=== PATIENT | female | born 1995 | race Hispanic/Latino ===

== ENCOUNTER 2019-07-26 08:43 | Inpatient (IN) | payer MEDICAID ==
[~2019-07-26] VITALS: Ht 165.1 cm; Wt 73.0 kg
[2019-07-26 09:30] LABS: APPEARANCE,URINE Cloudy (CLEAR); BILIRUBIN,URINE Negative (NEGATIVE); COLOR,URINE Yellow (YELLOW); GLUCOSE, URINE (UA) Negative (NEGATIVE); KETONES,URINE Negative (NEGATIVE); LEUKOCYTE ESTERASE ,URINE Small (NEGATIVE); NITRATE,URINE Negative (NEGATIVE); OCCULT BLOOD,URINE Negative (NEGATIVE); PH,URINE 6.5 (5.0-8.0); PROTEIN,URINE Trace mg/dL (NEGATIVE)
[2019-07-26 09:34] LABS: BACTERIA,URINE Rare /HPF (None Seen); RBC,URINE 0-1 /HPF (0-1); SQUAMOUS EPITHELIAL CELL,UR Rare /HPF (0-2); WBC,URINE 0-1 /HPF (0-1)
[2019-07-26] MEDS ORDERED: MORPHINE SULFATE 10 MG/ML 1ML VIAL IM SCH (10:00)
[2019-07-26 10:07] VITALS: BP 124/82
[2019-07-26] MEDS: LACTATED RINGERS 1000ML 1,000 ML IV PRN (10:13)
[2019-07-26 11:33] LABS: HEMATOCRIT 38.2 % (36-48); MEAN CORPUSCULAR VOLUME 94.1 fL (79-99); PLATELET COUNT (AUTO) 237 K/uL (130-400); RED BLOOD CELL COUNT(AUTO) 4.06 MIL/uL (4.00-5.50); RED CELL DISTRIBUTION WIDTH 11.6 % (11.0-15.5); WHITE BLOOD COUNT (AUTO) 8.3 K/uL (4.8-10.8)
[2019-07-26] MEDS ORDERED: PROMETHAZINE HCL 25 MG/ML 1ML AMPULE IM SCH (12:30)
[2019-07-26] MEDS ORDERED: MEPERIDINE-PF 50 MG/ML SYG IVP SCH (12:30)
[2019-07-26] MEDS ORDERED: ROPIVACAINE 0.2% 100ML VIAL 100 ML EP SCH (15:00)
[2019-07-26] MEDS ORDERED: LACTATED RINGERS 500 ML 500 ML IV PRN (15:00)
[2019-07-26] MEDS ORDERED: NALOXONE HCL 0.4 MG/1 ML ML IV PRN (15:00)
[2019-07-26] MEDS ORDERED: EPHEDRINE SULFATE 50 MG/ML AMPULE IVP PRN (15:00)
[2019-07-26] MEDS ORDERED: OXYTOCIN 10 USP UNITS/ML 20 UNIT in LACTATED RINGERS 1000ML 1,000 ML IV SCH (20:30)
[2019-07-26] MEDS ORDERED: LIDOCAINE HCL 1% 20 ML VIAL ONE (20:30)
[2019-07-26] MEDS: OXYTOCIN-LR 20 UNITS/1000 ML 1,000 ML IV SCH ×2 (20:33→23:00)
[2019-07-26] MEDS ORDERED: LANOLIN 30GM OINTMENT TP PRN (23:00)
[2019-07-26] MEDS ORDERED: DIPH,PERTUSS(ACELL),TET VAC/PF 0.5 ML VIAL IM PRN (23:00)
[2019-07-26] MEDS ORDERED: ACETAMINOPHEN-CODEINE 300/30MG TAB PO PRN (23:00)
[2019-07-27] VITALS (7 sets, daily range): BP systolic 115–129; BP diastolic 55–79
--- NOTE | 2019-07-27 01:15 | NUR ---
REPAIR OF VAGINAL SPECTUM BY DR. VERGARA. ICE PACK APPLIED FOR PRESSURE PER MD'S ORDER. Addendum: 07/27/19 at 0253 by ALEX BETTS RN RN Amended: Links added.
[2019-07-27] MEDS ORDERED: PREN-154 PO (02:18)
[2019-07-27] MEDS: WITCH HAZEL 1 PAD TP PRN (05:14)
[2019-07-27] MEDS: BENZOCAINE/LANOLIN/ALOE VERA 60 ML AEROSOL TP PRN (05:14)
[2019-07-27] MEDS: IBUPROFEN 600 MG TABLET PO PRN ×2 (05:15→21:00)
[2019-07-27] MEDS: OXYTOCIN-LR 20 UNITS/1000 ML 1,000 ML IV SCH ×2 (07:24)
--- NOTE | 2019-07-27 07:45 | NUR ---
PATIENT ASSESSED AND CHANGED ICE PACK TO PERINEUM AND TUCKS APPLIED WITH ICE PACK. PATIENT STATES HAVING RELIEF OF DISCOMFORT. INSTRUCTED PATIENT ON USE OF ICE PACK AND TUCKS TO REDUCE INFLAMATION TO PERINEUM AND FOR COMFORT.
[2019-07-27] MEDS: DOCUSATE SODIUM 100 MG CAP PO SCH ×2 (09:07→20:57)
--- NOTE | 2019-07-27 12:40 | NUR ---
DR. VERGARA ROUNDED AND ORDER GIVEN FOR DISCHARGE IN A.M. WHEN BABY IS DISCHARGED. PATIENT IS STABLE AND DENIES PAIN.
--- NOTE | 2019-07-27 17:30 | NUR ---
OFFERED MOTRIN AND PATIENT DENIES ANY PAIN.
--- NOTE | 2019-07-27 19:16 | NUR ---
BEDSIDE REPORT GIVEN TO Ly BETTS RN AND PATIENT CARE TRANSFERED AT THIS TIME.
--- NOTE | 2019-07-27 20:00 | NUR ---
PT. DOING SITZ BATH DUE TO REPAIR OF VAGINAL SEPTUM. SUTURES INTACT AND NO BLEEDING NOTED. Addendum: 07/27/19 at 2040 by ALEX BETTS RN RN Amended: Links added.
[2019-07-28 03:20] VITALS: BP 126/71
[2019-07-28 07:25] VITALS: BP 119/72
[2019-07-28] MEDS: DOCUSATE SODIUM 100 MG CAP PO SCH (09:00)
[2019-07-28] MEDS: IBUPROFEN 600 MG TABLET PO PRN (09:01)
[2019-07-28] MEDS: WITCH HAZEL 1 PAD TP PRN (09:43)
[2019-07-28] MEDS: BENZOCAINE/LANOLIN/ALOE VERA 60 ML AEROSOL TP PRN (09:43)
--- NOTE | 2019-07-28 11:30 | NUR ---
PATIENT LEFT UNIT VIA WHEELCHAIR WITH BABY IN ARMS. PERSONAL VEHICLE USED FOR TRANSPORTATION ACCOMPANIED BY FAMILY. BABY SECURE IN CARSEAT.
--- NOTE | 2019-07-28 18:20 | NUR ---
Manager Product Consult - hx of cutting Patient lives with common law , Rich Jarquin, [phone]. This is their first child. Baby's name is Nat Jarquin. They rent an apartment and have all basic needs. 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 Combined monthly income in $1200. Patient has no legal problems and reports no history of abuse. SW consult due to patient's hx of cutting self. Patient admits to cutting self when she was 15 yrs old and stated that she used to feel relief when she would cut self. Patient states she did not seek treatment or counseling for behavior but simply learned to using breathing exercises or meditation when she felt like cutting. Patient states she no longer cuts herself. SW provided patient with local counseling centers and contact information for [facility] Crisis Hotline. Patient was receptive of information. No referrals will be made at this time. Addendum: 07/28/19 at 1827 by HOLLY DAVEY SS Amended: Links added.
[2019-07-29 07:13] LABS: HEPATITIS Bs ANTIGEN SCREEN P Negative (Negative)
== END 2019-07-28 11:30 | disposition home or self-care (01) | DRG 560 ==
LOC: EDH 08:43 → OBSVTOIN 08:57 → LDH 08:57 → WSH 07-27 01:00
PROVIDERS: ADMIT Obstetrics & Gynecology; ATTEND Obstetrics & Gynecology
PROC: 10E0XZZ Delivery of Products of Conception, External Approach (ICD-10-PCS; principal; 2019-07-26)
PROC: 3E0R3BZ Introduction of Anesthetic Agent into Spinal Canal, Percutaneous Approach (ICD-10-PCS; 2019-07-26)
PROC: 00HU33Z Insertion of Infusion Device into Spinal Canal, Percutaneous Approach (ICD-10-PCS; 2019-07-26)
PROC: 3E0234Z Introduction of Serum, Toxoid and Vaccine into Muscle, Percutaneous Approach (ICD-10-PCS; 2019-07-26)
DX: O80 Encounter for full-term uncomplicated delivery (principal); Z37.0 Single live birth; Z23 Encounter for immunization; Z3A.39 39 weeks gestation of pregnancy
CPT/HCPCS: 36415; 81001; 85027; 86592; 86850; 86900; 86901; 87340; 90715; A4314; G0378; J2175; J2270; J2550; J2590; J2795; J3010; J7120

== ENCOUNTER → 2023-09-08 | Outpatient (CLI) | payer MEDICAID ==
[~2023-09-08] MED LIST: PREN-154 PO
== END | disposition home or self-care (01) ==
LOC: SHCH 14:48
PROVIDERS: ATTEND Student in an Organized Health Care Education/Training Program
DX: R01.1 Cardiac murmur, unspecified (principal)
CPT/HCPCS: 93306